=== PATIENT | female | born 1975 | race Caucasian/White ===

== ENCOUNTER 2023-12-01 07:46 | Day surgery (SDC) | payer OTHER ==
[~2023-12-01] VITALS: Ht 160 cm; Wt 63.5 kg
[2023-12-01] MEDS ORDERED: LIDOCAINE 2% 100 MG/5 ML UJET TP ONE (09:51)
[2023-12-01] MEDS ORDERED: fentaNYL citrate 0.05 MG/ML VIAL ONE (09:51)
[2023-12-01] MEDS: fentaNYL citrate 0.05 MG/ML VIAL IVP ONE (10:17)
== END 2023-12-01 11:10 | disposition home or self-care (01) ==
LOC: MDS 07:46 → MMU 07:47 → MDS 11:10
PROVIDERS: ATTEND Internal Medicine Gastroenterology
DX: R14.0 Abdominal distension (gaseous) (principal); K63.5 Polyp of colon; Z79.899 Other long term (current) drug therapy; Z98.890 Other specified postprocedural states
CPT/HCPCS: 45385; J3010